=== PATIENT | female | born 1980 | race Caucasian/White ===

== ENCOUNTER 2016-08-08 19:45 | Emergency (ER) | payer MEDICARE, MEDICAID, OTHER ==
[~2016-08-08 19:45] MED LIST: ALBU1AER INH; ALUM5LIQ PO; AZIT250T43 PO; BIOT10004 PO; BUSP10 PO; COUG100S2 PO; IBUP800T23 PO; LEXA20TA PO; LORA10TA PO; METO100T9 PO; METO50CR PO; MOME17I; MULT1TAB21 PO; OCEASPR; ORTHTAB3 PO; PATA0.2S OP; PHEN1.4%S MT; ROBIACUDC PO; SELE15SH EX; SERO50TA PO; TYLE500T PO; VITA100017 PO; [UNRECOGNIZED DRUG - CODE] TOP
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
[2016-08-08 21:14] LABS: AMPHETAMINE, URINE NEG (NEG); BARBITURATES, URINE NEG (NEG); COCAINE, URINE NEG (NEG)
[2016-08-08 21:15] LABS: BASOPHIL % 0.3 % (0.0-2.0); EOSINOPHIL # 0.1 TH/MM3 (0-0.4); EOSINOPHIL % 1.5 % (0.0-4.0); HEMATOCRIT 40.3 % (35.0-46.0); HEMO FLAGS DIFF FINAL; LYMPH % 26.8 % (9.0-44.0); LYMPHOCYTE # 2.2 TH/MM3 (1.0-4.8); MEAN CELL VOLUME 88.4 FL (80.0-100.0); MEAN CORPUSCULAR HEMOGLOBIN 29.3 PG (27.0-34.0); MEAN CORPUSCULAR HGB CONC 33.2 % (32.0-36.0); MONO % 9.6 % (0.0-8.0); NEUT % 61.8 % (16.0-70.0); PLATELET COUNT 185 TH/MM3 (150-450); RED BLOOD COUNT 4.56 MIL/MM3 (4.00-5.30); RED CELL DISTRIBUTION WIDTH 12.5 % (11.6-17.2); WHITE BLOOD COUNT 8.1 TH/MM3 (4.0-11.0)
[2016-08-08 21:24] VITALS: BP 128/73; PULSE 63; RESP 18; O2SAT 95
[2016-08-08 21:27] LABS: ANION GAP 6 MEQ/L (5-15)
[2016-08-08 21:30] LABS: ACETAMINOPHEN LESS THAN 2.0 MCG/ML (10.0-30.0); ALKALINE PHOSPHATASE 75 U/L (45-117); ALT (GPT) 21 U/L (10-53); AST (GOT) 22 U/L (15-37); BLOOD UREA NITROGEN 21 MG/DL (7-18); CHLORIDE 101 MEQ/L (98-107); GLOMERULAR FILTRATION RATE 61 ML/MIN (>89); POTASSIUM 3.9 MEQ/L (3.5-5.1); SODIUM (NA) 138 MEQ/L (136-145); TOTAL BILIRUBIN ADULT 0.3 MG/DL (0.2-1.0)
[2016-08-09 02:29] VITALS: BP 100/50; PULSE 64; RESP 17; O2SAT 98
[2016-08-09 06:00] VITALS: BP 103/57; PULSE 56; RESP 19; O2SAT 97
[2016-08-09 10:06] VITALS: BP 107/65; PULSE 71
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
== END 2016-08-09 17:06 | disposition home or self-care (01) ==
LOC: NEDAMB 19:45 → NEPJ 08-09 17:06
DX: F43.10 Post-traumatic stress disorder, unspecified (principal); F60.3 Borderline personality disorder; Z72.0 Tobacco use
CPT/HCPCS: 80053; 80307; 85025; 99284